=== PATIENT | female | born 1945 | race Caucasian/White ===

== ENCOUNTER → 2016-09-24 12:16 | Outpatient (CLI) | payer MEDICARE, BC ==
[2014-06-02 13:22] VITALS: BMI 28.9
[~2016-09-24 12:16] MED LIST: AMITRIPTYLINE H50 MG PO; AMOXICILLIN500 M1 PO; LEVOXYL75 MCG PO; PRILOSEC20 MG PO; PRINZIDE 20/12.1 TA1 PO; VITAMIN D31000 UNIT PO; XARELTO20 MG PO
== END | disposition home or self-care (01) ==
LOC: D.RAD 12:16
DX: M25.561 Pain in right knee (principal); M25.562 Pain in left knee; W19.XXXA Unspecified fall, initial encounter

== ENCOUNTER → 2017-06-05 09:52 | Outpatient (CLI) | payer MEDICARE, BC ==
[2014-06-02 13:22] VITALS: BMI 28.9
== END | disposition home or self-care (01) ==
LOC: D.CT 09:52
DX: R29.6 Repeated falls (principal)

== ENCOUNTER → 2017-06-27 12:16 | Outpatient (CLI) | payer MEDICARE, BC ==
[2014-06-02 13:22] VITALS: BMI 28.9
== END | disposition home or self-care (01) ==
LOC: D.US 12:16
DX: I65.23 Occlusion and stenosis of bilateral carotid arteries (principal)

== ENCOUNTER 2017-12-04 14:54 | Emergency (ER) | payer MEDICARE, BC ==
[~2017-12-04] VITALS: Ht 165.1 cm; Wt 70.5 kg
[2017-12-04 15:21] VITALS: Ht 165.1 cm; Wt 70.5 kg
[2017-12-04] MEDS ORDERED: COUMADIN5 MG PO (15:24)
[2017-12-04] MEDS ORDERED: FUROSEMIDE20 MG PO (15:25)
[2017-12-04] MEDS ORDERED: ZYLOPRIM300 MG PO (15:25)
[2017-12-04] MEDS ORDERED: CARDIZEM CD240 MG PO (15:25)
[2017-12-04 18:44] VITALS: BP 174/60
== END 2017-12-04 18:50 | disposition home or self-care (01) ==
LOC: D.ER 14:54
DX: S81.811A Laceration without foreign body, right lower leg, initial encounter (principal); W01.0XXA Fall on same level from slipping, tripping and stumbling without subsequent striking against object, initial encounter; Y93.89 Activity, other specified; Y92.512 Supermarket, store or market as the place of occurrence of the external cause; Z79.01 Long term (current) use of anticoagulants; Z86.73 Personal history of transient ischemic attack (TIA), and cerebral infarction without residual deficits; E07.9 Disorder of thyroid, unspecified; I10 Essential (primary) hypertension

== ENCOUNTER 2018-10-15 19:00 | Outpatient (CLI) | payer MEDICARE, BC ==
[2017-12-04 15:21] VITALS: BMI 25.8
[~2018-10-15 19:00] MED LIST changes: +CARDIZEM CD240 MG PO; +COUMADIN5 MG PO; +FUROSEMIDE20 MG PO; +ZYLOPRIM300 MG PO
== END 2018-10-15 23:59 | disposition home or self-care (01) ==
LOC: D.MAMMO 19:00
PROVIDERS: ATTEND Family Medicine
DX: Z12.31 Encounter for screening mammogram for malignant neoplasm of breast (principal)

== ENCOUNTER 2018-11-13 09:02 | Outpatient (CLI) | payer MEDICARE, BC ==
[~2018-11-13] VITALS: Ht 162.6 cm; Wt 72.7 kg
--- NOTE | ~2018-11-13 | HEMODYNAMI ---
PATIENT:MARCELLE CAMERON MEDICAL RECORD: [id number] : 41 LOCATION:[facility] ADMISSION DATE: 11/13/18 Generatedon:11/13/201812:33 Patient name: MARCELLE CAMERON Patient #: [id number] N: [id number] : 1945 Date of study: 11/13/2018 Page: Of Hemodynamic Procedure Report Patient Data Patient Demographics Procedure consent was obtained First Name: MARCELLE Gender: Female Last Name: NISHA : 1945 Patient #: [id number] Age: 73 year(s) Race: SSN: [id number] Additional ID: [id number] Contact details Address: [address] [place] [address] State: [place] City: [place] Zip code: [address] Past Medical History Allergies Allergen Reaction Date Comments Reported Sulfa drugs 06/02/2014 Admission Admission Data Admission Date: 11/13/2018 Admission Time: 9:02 Arrival Date: 11/13/2018 Arrival Time: 11:00 Admit Source: Other Insurance Payor: Medicare Height (in.): 64.17 BSA: 1.79 (m2) Height (cm.): 163 BMI: 27.48 (kg/m2) Weight (lbs.): 160.94 Weight (kg.): 73 Lab Results Lab Result Date: 11/13/2018 Lab Result Time: 0:00 Biochemistry Name Units Result Min Max BUN mg/dl 23 --(----)-* 7 18 Creatinine mg/dl 1.3 --(---*)-- 0.6 1.3 CBC Name Units Result Min Max Hemoglobin g/dl 12.5 *-(----)-- 13.5 17.5 Procedure Procedure Types Cath Procedure Diagnostic Procedure Sedation Charges Moderate Sedation up to 15 minutes Peripheral Cath Diagnostic Procedure Silviculturist Peripheral Procedures [id number]-Ynhjjkv-Kau-Off Procedure Description Procedure Date Procedure Date: 11/13/2018 Procedure Start Time: 12:27 Procedure Staff Name Function Espinoza Kimble MD Performing Physician Daphney Rolle RT Monitor Alyssa Ivy RN Nurse Lance Storm RT Scrub Procedure Data Cath Procedure Fluoroscopy Diagnostic fluoroscopy Total fluoroscopy Time: 0.6 time: 0.6 min min Diagnostic fluoroscopy Total fluoroscopy dose: 79 dose: 79 mGy mGy Contrast Material Contrast Material Type Amount (ml) Isovue 300 48 Entry Location Entry Primary Successful Side Size Upsize Upsize Entry Closure Succes sful Closure Location (Fr) 1 (Fr) 2 (Fr) Remarks Device Remarks Femoral Left 5 Fr Exoseal artery Estimated blood loss: 5 ml Diagnostic catheters Device Type Used For End Catheter Placement DIAGNOSTIC UF 5Fr Multi-vessel catheter ([id number]) Angiography Procedure Medications Medication Administration Route Dosage 0.9% NaCl I.V. 100 ml/hr Oxygen etCO2 Nasal cannula 2 l/min Lidocaine 2% added to field 20 Heparin Flush Bag added to field 2 bags (1000units/500ml NS) Versed I.V. 2 mg Fentanyl I.V. 50 mcg Versed I.V. 1 mg Fentanyl I.V. 50 mcg Hemodynamics Rest BSA: 1.79 (m2) HGB: 12.5 (g/dl) O2 Consumption: Estimated: 174.95 (ml/min) O2 Co nsumption indexed: Estimated:97.74 (ml/min/m) Heart Rate: 88 (bpm) Snapshots Pre Cath Intra NCS Post Cath Vital Signs Time Heart Resp SPO2 etCO2 NIBP (mmHg) Rhythm Pain Sedation Rate (ipm) (%) (mmHg) Status Level (bpm) 12:10:03 67 17 100 29.2 166/75(127) NSR 0 (11) 10(A) , No pain 12:13:58 72 13 99 25.5 150/72(121) NSR 0 (11) 10(A) , No pain 12:18:22 68 29 98 30 153/66(116) NSR 0 (11) 10(A) , No pain 12:22:14 68 12 96 32.3 141/70(109) NSR 0 (11) 9(A) , No pain 12:26:05 67 21 94 0 134/68(100) NSR 0 (11) 9(A) , No pain 12:31:04 71 14 99 27.7 Measuring NSR 0 (11) 9(A) , No pain 12:31:06 70 14 99 27.7 147/63(105) NSR 0 (11) 10(A) , No pain Medications Time Medication Route Dose Verified Delivered Reason Notes Eff ectiveness by by 12:09:58 0.9% NaCl I.V. 100 Espinoza Alyssa used for ml/hr Shyanne Ivy webmaster 12:10:04 Oxygen etCO2 2 Espinzoa Alyssa used for Nasal l/min Shyanne Ivy procedure cannula RN 12:10:09 Lidocaine 2% added 20ml Espinoza Espinoza for local to vial Shyanne Kimble MD anesthetic field 12:10:14 Heparin Flush added 2 Espinoza Espinoza used for Bag to bags Shyanne Kimble MD procedure (1000units/500ml field NS) 12:15:24 Versed I.V. 2 mg Espinoza Alyssa for Shyanne Ivy sedation RN 12:15:34 Fentanyl I.V. 50 Espinoza Alyssa for mcg Shyanne Ivy sedation RN 12:21:45 Versed I.V. 1 mg Espinoza Alyssa for Shyanne Ivy sedation RN 12:21:51 Fentanyl I.V. 50 Espinoza Alyssa for mcg Shyanne Ivy sedation agricultural adviser Log Time Note 11:45:21 Diagnostic Cath Status : Elective 11:46:01 Amador Garcia RT(R) sent for patient. Start room use. 11:46:02 Time tracking: Regular hours (M-F 7:00 - 5:00) 11:46:06 Plan of Care:Hemodynamics will remain stable., Cardiac rhythm will remain stable., Comfort level will be maintained., Respiratory function will remain adequate., Patient/ family verbilizes understanding of procedure., Procedure tolerated without complication., Recovers from procedure without complications.. 11:47:06 Admit Source: Other 11:47:54 Insurance Payor : Medicare 11:48:21 Arrival Date: 11/13/2018 11:00:00 AM 11:53:24 Lab Result : Hemoglobin 12.5 g/dl 11:53:24 Lab Result : Creatinine 1.3 mg/dl 11:53:24 Lab Result : BUN 23 mg/dl 11:54:17 Informed consent obtained and on chart 11:59:37 Patient Weight : 160.94 lbs 11:59:40 Patient Height : 64.17 inches 12:00:09 3b) 30-44 Moderately reduced kidney function. 12:00:34 Maximum allowable contrast does (3.7 X eGFR X 0.75)117 ml. 12:00:49 Sedation plan: IV Moderate Sedation Medication:Versed, Fentanyl 12:00:59 Patient received from Pre/Post Procedure Room to CCL 2 Alert and oriented. Tansferred to table in Supine position. 12:01:00 Warm blankets applied, and mika hugger turned on for patient comfort. 12:01:01 Correct patient and procedure confirmed by team. 12:01:02 ECG and BP/O2 sat monitors applied to patient. 12:08:46 Baseline sample Acquired. 12:08:46 Vital chart was started 12:09:00 Rhythm: sinus rhythm 12:09:02 Full Disclosure recording started 12:09:09 H&P Date Dictated: 11/13/2018 Within 30 days and on chart., H&P Addendum completed by physician on day of procedure. (MUST COMPLETE FOR ALL OUTPATIENTS). 12:09:10 Pre-procedure instructions explained to patient. 12:09:11 Pre-op teaching completed and patient verbalized understanding. 12:09:58 0.9% NaCl 100 ml/hr I.V. was administered by Alyssa Ivy RN; used for procedure; 12:10:04 Oxygen 2 l/min etCO2 Nasal cannula was administered by Alyssa Ivy RN; used for procedure; 12:10:09 Lidocaine 2% 20ml vial added to field was administered by Espinzoa Kimble MD; for local anesthetic; 12:10:14 Heparin Flush Bag (1000units/500ml NS) 2 bags added to field was administered by Espinoza Kimble MD; used for procedure; 12:13:24 Family in patients room. 12:13:25 Patient NPO since Midnight. 12:13:27 Is the patient allergic to Iodine/contrast media? No. 12:13:28 Was the patient premedicated? No 12:13:31 Is patient on blood thinner?No 12:13:32 Patient diabetic? No. 12:13:34 Previous problem with sedation/anesthesia? No ? 12:13:36 Snore? Yes 12:13:37 Sleep apnea? No 12:13:38 Deviated septum? No 12:13:38 Opens mouth fully? Yes 12:13:39 Sticks out tongue? Yes 12:13:43 Airway obstruction? No ? 12:13:45 Dentures? No ? 12:13:50 Pre procedure: right dorsailis pedis pulse 2+ Normal; easily identifiable; not easily obliterated 12:13:52 Pre procedure: left dorsailis pedis pulse 2+ Normal; easily identifiable; not easily obliterated 12:13:53 Patient pain scale 0/10 ?. 12:14:01 IV patent on arrival in left forearm with 0.9% NaCl at [facility]. 12:14:03 Lab results completed and on chart. 12:14:06 Bilateral groins area was prepped with chlora-prep and draped in sterile fashion 12:14:07 Alarms reviewed by R. N. 12:14:07 Sharps counted by scrub and verified by R.N. 12:14:09 Physician arrived 12:14:10 --------ALL STOP TIME OUT------ 12:14:10 Final Timeout: patient, procedure, and site verified with staff and physician. All members of the team are in agreement. 12:14:12 Bilateral groins site verified by team. 12:14:15 Fire Safety Assessment: A--An alcohol-based skin anteseptic being used preoperatively., C--Open oxygen or nitrous oxide is being used., D--An ESU, laser, or fiber-optic light is being used. 12:14:17 Physical assessment completed. ASA score P 2 - A patient with mild systemic disease as per Espinoza Kimble MD. 12:15:24 Versed 2 mg I.V. was administered by Alyssa Ivy RN; for sedation; 12:15:34 Fentanyl 50 mcg I.V. was administered by Alyssa Ivy RN; for sedation; 12:16:51 Use device set CATH PACK 12:16:52 ACIST Syringe (86410) opened to sterile field. 12:16:53 ACIST Hand Control (59701) opened to sterile field. 12:16:53 ACIST Manifold (88202) opened to sterile field. 12:16:54 Medline Cath Pack ([id number]) opened to sterile field. 12:16:54 Bag Decanter (2002) opened to sterile field. 12:16:55 EMERALD Guide Wire (646-354) opened to sterile field. 12:17:02 SHEATH 5FR Hampton (ODQ344) opened to sterile field. 12:21:45 Versed 1 mg I.V. was administered by Alyssa Ivy RN; for sedation; 12::51 Fentanyl 50 mcg I.V. was administered by Alyssa Ivy RN; for sedation; 12:26:50 Procedure started. 12:27:07 Local anesthetic to left femerol artery with Lidocaine 2% by Espinoza Kimble MD.INITIAL ACCESS ONLY 12:27:17 A 5 Fr sheath was inserted into the Left Femoral artery 12:27:44 A DIAGNOSTIC UF 5Fr catheter ([id number]) was advanced over the wire and used for Multi-vessel Angiography. 12:28:19 Abdominal angiogram w/ runoff was performed. 12:28:33 Catheter removed. 12:29:00 EXOSEAL 5Fr (EX500) opened to sterile field. 12:29:19 Sheath removed intact; hemostasis achieved with Exoseal to the Left Femoral artery. 12:29:38 Procedure ended.(Physican Out) 12:30:11 Fluoroscopy time 00.60 minutes. 12:30:59 Fluoroscopy dose: 79 mGy 12:30:59 Flurop Dose total: 79 12:31:07 Contrast amount:Isovue 300 48ml. 12:31:08 Sharps counted by scrub and verified by R.N. 12:31:09 Insertion/operative site no bleeding no hematoma. 12:31:17 Post-op/insertion site Left Femoral artery dressed using a 4 x 4 and Tegaderm. 12:31:25 Post procedure rhythm: unchanged. 12:31:28 Estimated blood loss: 5 ml 12:31:29 Post procedure instruction explained to patient.Patient verbalizes understanding. 12:31:30 Patient needs reinforcement of post procedure teaching. 12:32:36 Procedure type changed to Cath procedure, Diagnostic procedure, Sedation Charges, Moderate Sedation up to 15 minutes, Peripheral Cath Diagnostic Procedure, Silviculturist Peripheral Procedures, Mfmmu-Qyomokp-Qlt-Off 12:33:11 Vital chart was stopped Device Usage Item Name Manufacture Quantity Catalog Hospital Part Current Minimal L ot# / Number Charge Number Stock Stock Serial# Code ACIST Acist 1 34844 [id number] 348318 [id number] 20 Syringe Medical (00211) Systems Inc ACIST Hand Acist 1 94809 992029 574490 312461 5 Control Medical (46437) Systems Inc ACIST Acist 1 11300 462149 642802 009712 5 Manifold Medical (19869) Systems Inc Medline Medline 1 [id number] 555381 07805 574988 5 Cath Pack ([id number]) Bag Microtek 1 2002S 601564 32896 574078 5 Decanter Medical Inc. (2001S) EMERALD Cardinal 1 502-455 446893 437883 528776 5 Guide Wire Health (502-455) SHEATH 5FR Terumo 1 CFQ136 437595 741784 212917 5 Hampton (QJQ508) DIAGNOSTIC Cardinal 1 [id number] 557852 185070 687350 10 UF 5Fr Health catheter ([id number]) EXOSEAL 5Fr Cardinal 1 EX500 970597 431319 170383 10 (EX500) Health Signature Audit Harris Stage Time Signature Unsigned Intra-Procedure 11/13/2018 Daphney Rolle 12:33:07 PM RT(R) Signatures Performing Physician : Signature : Espionza Kimble MD Date : Time : Monitor : Daphney Rolle RT Signature : Date : Time : Nurse : Alyssa Ivy RN Signature : Date : Time : [facility] [address] [place] [address]
[2018-11-13] MEDS ORDERED: CRESTOR10 MG PO (09:26)
[2018-11-13] MEDS ORDERED: COLCRYS0.6 MG PO (09:27)
[2018-11-13 09:37] VITALS: BP 143/63; Ht 162.6 cm; Wt 72.7 kg
[2018-11-13 09:48] LABS: BASOPHILS 0.1 % (0-2); EOSINOPHILS 0.6 % (0-7); HEMOGLOBIN 12.5 g/dL (12-16); IMMATURE GRANULOCYTES 0.6 % (0-5); LYMPHOCYTES 28.1 % (15-50); MCH 32.6 pg (26.0-34.0); MCHC 34.7 g/dL (31.0-37.0); MCV 93.8 fL (80.0-100.0); MEAN PLATELET VOLUME 10.2 fL (7.4-10.4); MONOCYTES 8.3 % (2-11); NEUTROPHILS 62.3 % (40-80); PLATELET COUNT 206 10x3/uL (130-400); RBC 3.84 10x6/uL (4.00-5.40); RDW 14.4 % (11.5-14.5); WBC 6.9 10x3/uL (4.8-10.8)
[2018-11-13 09:54] LABS: INR 2.98 (0.85-1.17); PROTIME 30.2 SECONDS (11.6-15.0)
[2018-11-13 10:00] LABS: CALCIUM 8.9 mg/dL (8.5-10.1); CARBON DIOXIDE 22.7 mmol/L (21.0-32.0); CREATININE - SERUM 1.3 mg/dL (0.6-1.3); POTASSIUM - SERUM 3.7 mmol/L (3.5-5.1)
--- NOTE | 2018-11-13 13:00 | NUR ---
2L NC, NO RESP DISTRESS. LEFT GROIN 5F EXOSEAL CDI, NO BLEEDING OR HEMATOMA NOTED. NO C/O PAIN OR NAUSEA. VSS. FAMILY AT BEDSIDE, CALL LIGHT WITHIN REACH.
--- NOTE | 2018-11-13 13:40 | NUR ---
HOB ELEVATED 30 DEGREES. LEFT GROIN 5F EXOSEAL CDI, NO BLEEDING NOTED. SIPPING ON DRINK AND EATING SANDWICH WITH NO C/O NAUSEA. VSS. WILL CONTINUE TO MONITOR.
--- NOTE | 2018-11-13 14:10 | NUR ---
LEFT PIV D/C'D WITH CATHETER INTACT, BAND AID TO SITE. UP TO BEDSIDE TO GET DRESSED. AMBULATED TO RESTROOM.
--- NOTE | 2018-11-13 14:20 | NUR ---
DISCHARGE INSTRUCTIONS GIVEN TO PT AND FAMILY, BOTH VERBALIZED UNDERSTANDING.
--- NOTE | 2018-11-13 14:30 | NUR ---
TAKEN OUT VIA WHEELCHAIR BY CATH PSYCH NURSE. LEFT FACILITY WITH FAMILY AND ALL PERSONAL BELONGINGS.
--- NOTE | 2018-11-13 16:52 | OP ---
PATIENT NAME: MARCELLE CAMERON MEDICAL RECORD: [id number] :41 LOCATION:D.CAT ADMISSION DATE: SURGEON: DEREK MCFADDEN MD DATE OF OPERATION: 11/13/2018 DATE OF SERVICE: 11/13/2018 PROCEDURES: 1. Aortofemoral runoff. 2. Abdominal aortography. INDICATION: Leg pain compatible with claudication, abnormal Doppler, abnormal CTA. PROCEDURE IN DETAIL: After informed consent was obtained and after a detailed description of risks, benefits as well as alternative therapies, the patient elected to proceed with angiogram and aortofemoral runoff. The left femoral area was prepped and draped in normal sterile fashion. Left femoral artery was cannulated via modified Seldinger technique with placement of 5-Bulgarian sheath. All catheters exchanged through this sheath. FINDINGS: The abdominal aortography was performed. The catheter was pulled down for aortofemoral runoff. Abdominal aortography reveals no significant abdominal aortic disease, no dissection or aneurysm formation. RIGHT LEG: A. Iliac: The common internal and external iliacs have no significant peripheral vascular disease. B. Femoral system: The common superficial and deep femoral have no significant peripheral vascular disease. C. Polyps and infrapopliteal vessels are widely patent with good 3-vessel runoff to the foot. RIGHT LEG: A. Iliac: The common internal and external iliacs have no significant peripheral vascular disease. B. Femoral system: The common superficial and deep femoral have no significant peripheral vascular disease. C. Popliteal and infrapopliteal vessels are widely patent with good 3-vessel runoff to the foot. LEFT LEG: A. Iliac: The common internal and external iliacs have no significant peripheral vascular disease. B. Femoral system: The common superficial and deep femoral have no significant peripheral vascular disease. C. Popliteal and infrapopliteal vessels are widely patent with good 3-vessel runoff to the foot. OVERALL IMPRESSION: No significant peripheral vascular disease is present. Leg pain is not due to arterial insufficiency. TRANSINT:[id number] Voice Confirmation ID: [id number] DOCUMENT ID: [id number] OPERATIVE REPORT [id number] MARCELLE CAMERON JEFFREY MD at 1652 CC: [id number] DICTATION DATE: 11/13/18 1242 RESULTS TECHNICIAN: 11/13/18 1313 DEP CLI 11/13/18 [facility] [address] [place] [address]
== END 2018-11-13 14:30 | disposition home or self-care (01) ==
LOC: D.CATH 09:02
PROVIDERS: ATTEND Internal Medicine Interventional Cardiology
DX: M79.606 Pain in leg, unspecified (principal); Z01.812 Encounter for preprocedural laboratory examination

== ENCOUNTER → 2019-10-29 08:31 | Outpatient (CLI) | payer MEDICARE, BC ==
[2018-11-13 09:37] VITALS: BMI 27.5
[~2019-10-29 08:31] MED LIST changes: +COLCRYS0.6 MG PO; +CRESTOR10 MG PO
== END | disposition home or self-care (01) ==
LOC: D.US 08:31
PROVIDERS: ATTEND Family Medicine
DX: R11.0 Nausea (principal)

== ENCOUNTER 2019-11-15 10:45 | Outpatient (CLI) | payer MEDICARE, BC ==
[2018-11-13 09:37] VITALS: BMI 27.5
== END 2019-11-15 11:00 | disposition home or self-care (01) ==
LOC: D.MAMMO 10:45
PROVIDERS: ATTEND Family Medicine
DX: Z12.31 Encounter for screening mammogram for malignant neoplasm of breast (principal)

== ENCOUNTER 2020-08-16 21:36 | Emergency (ER) | payer MEDICARE, BC ==
[~2020-08-16] VITALS: Ht 162.6 cm; Wt 72.7 kg
[2020-08-16 21:44] VITALS: Ht 162.6 cm; Wt 72.7 kg
[2020-08-16 22:32] LABS: BASOPHILS 0.2 % (0-2); EOSINOPHILS 0.3 % (0-7); HEMATOCRIT 42.1 % (36.0-48.0); HEMOGLOBIN 14.1 g/dL (12-16); LYMPHOCYTE ABS# 2.19 10x3/uL (1.18-3.74); LYMPHOCYTES 15.5 % (15-50); MCHC 33.5 g/dL (31.0-37.0); MCV 95.7 fL (80.0-100.0); MEAN PLATELET VOLUME 10.5 fL (7.4-10.4); MONOCYTES 10.8 % (2-11); NEUTROPHIL ABS# 9.94 10x3/uL (1.56-6.13); NEUTROPHILS 70.2 % (40-80); PLATELET COUNT 237 10x3/uL (130-400); RDW 14.2 % (11.5-14.5); WBC 14.2 10x3/uL (4.8-10.8)
[2020-08-16 22:43] LABS: INR 2.93 (0.85-1.17); PROTIME 28.5 SECONDS (11.6-15.0)
[2020-08-16 22:44] LABS: D-DIMER-QUANTITATIVE < 0.27 ug/mLFEU (0.20-0.54)
[2020-08-16 22:48] LABS: CALC OSMOLALITY 288 mosm/kg (275-300); CALCIUM 8.6 mg/dL (8.5-10.1); CARBON DIOXIDE 20.1 mmol/L (21.0-32.0); CHLORIDE - SERUM 107 mmol/L (98-107); CREATININE - SERUM 1.4 mg/dL (0.6-1.3); GLUCOSE 122 mg/dL (74-106); POTASSIUM - SERUM 3.6 mmol/L (3.5-5.1); SODIUM 141 mmol/L (136-145); UREA NITROGEN 32 mg/dL (7-18); eGFR NON AFRICAN AMERICAN 39 mL/min (90-120)
[2020-08-16 23:01] LABS: ALBUMIN 3.4 g/dL (3.4-5.0); ALKALINE PHOSPHATASE 70 U/L (30-120); ALT (SGPT) 35 U/L (10-68); BILIRUBIN - TOTAL 0.34 mg/dL (0.2-1.3); LIPASE 219 U/L (73-393); MAGNESIUM - SERUM 1.9 mg/dL (1.8-2.4); PRO BNP 239 pg/mL (0-450); PROTEIN - SERUM 6.6 g/dL (6.4-8.2); TROPONIN-I < 0.017 ng/mL (0.000-0.060)
[2020-08-16 23:12] LABS: BILIRUBIN NEGATIVE (NEGATIVE); KETONE NEGATIVE (NEGATIVE); NITRITE POSITIVE (NEGATIVE); UROBILINOGEN NORMAL mg/dL (< 2)
[2020-08-16 23:13] LABS: WHITE CELLS - URINE >50 HPF (0-4)
[2020-08-16 23:14] LABS: SQUAMOUS EPITHELIAL 0-5 HPF (0-4); UDS - AMPHET NEGATIVE QUAL (NEGATIVE); UDS - BARB NEGATIVE QUAL (NEGATIVE); UDS - BENZO NEGATIVE QUAL (NEGATIVE); UDS - COCAINE NEGATIVE QUAL (NEGATIVE); UDS - OPIATE NEGATIVE QUAL (NEGATIVE); UDS - PCP NEGATIVE QUAL (NEGATIVE); UDS - THC NEGATIVE QUAL (NEGATIVE)
[2020-08-16 23:15] LABS: BACTERIA MANY HPF (NONE SEEN)
[2020-08-17] MEDS ORDERED: OMNICEF300 MG PO (00:56)
[2020-08-17 01:14] VITALS: BP 110/50
== END 2020-08-17 01:15 | disposition home or self-care (01) ==
LOC: D.ER 21:36
PROVIDERS: Family Medicine
DX: R55 Syncope and collapse (principal); C44.42 Squamous cell carcinoma of skin of scalp and neck; N39.0 Urinary tract infection, site not specified; I10 Essential (primary) hypertension